=== PATIENT | male | born 2000 | race African-American/Black ===

== ENCOUNTER 2022-11-10 12:52 | Emergency (ER) | payer MEDICAID ==
[~2022-11-10] VITALS: Ht 175.3 cm; Wt 75.0 kg
[2022-11-10] MEDS ORDERED: ALBUTEROL (0.083%) 2.5MG/3ML NEB HHN STA (13:46)
[2022-11-10] MEDS ORDERED: IPRATROPIUM BROMIDE (0.02%) 0.5MG/2.5ML NEB HHN STA (13:46)
[2022-11-10] MEDS ORDERED: ALBU6.7H3 INH (13:51)
[2022-11-10] MEDS ORDERED: BECL10.62 INH (13:51)
[2022-11-10] MEDS ORDERED: DEXAMETHASONE 4MG TABLET PO ONE (14:00)
[2022-11-10 15:13] VITALS: BP 115/86
== END 2022-11-10 15:14 | disposition home or self-care (01) ==
LOC: ER 13:11
DX: J45.909 Unspecified asthma, uncomplicated (principal)
CPT/HCPCS: 94640; 99283; J8540; Z7610